=== PATIENT | female | born 1940 | race Caucasian/White ===

== ENCOUNTER 2021-02-02 07:33 | Emergency (ER) | payer MEDICARE, BC ==
[~2021-02-02] VITALS: Ht 165.1 cm; Wt 117.9 kg
[2021-02-02] MEDS ORDERED: DICLOFENAC SOD100 GM TP (08:06)
[2021-02-02] MEDS ORDERED: FUROSEMIDE20 MG PO (08:07)
[2021-02-02] MEDS ORDERED: POTASSIUM CHLORIDE E ×2 (08:07→08:08)
[2021-02-02] MEDS ORDERED: PANTOPRAZOLE SO40 M2 PO (08:07)
[2021-02-02] MEDS ORDERED: HYDROCO/APAP TAB 5-3 (08:08)
[2021-02-02] MEDS ORDERED: K-Dur10 MEQ (08:08)
[2021-02-02 08:44] LABS: BASOPHILS ABSOLUTE AUTO 0.05 K/mm3 (0.00-0.23); BASOPHILS PERCENT AUTO 1 % (0-2); EOSINOPHILS PERCENT AUTO 2 % (0-6); Hematocrit 45.3 % (33.0-51.0); Hemoglobin 14.6 g/dL (11.5-16.0); IMMATURE GRAN ABSOLUTE AUTO 0.01 K/mm3 (0.00-0.10); IMMATURE GRAN PERCENT AUTO 0 % (0-1); LYMPHOCYTES ABSOLUTE AUTO 2.43 K/mm3 (0.84-5.20); LYMPHOCYTES PERCENT AUTO 46 % (21-46); MONOCYTES ABSOLUTE AUTO 0.74 K/mm3 (0.16-1.47); MONOCYTES PERCENT AUTO 14 % (4-13); Mean Corpuscular HGB 34.2 pg (26.0-34.0); Mean Corpuscular HGB Conc 32.2 g/dL (31.5-36.5); Mean Corpuscular Volume 106 fL (80-100); Mean Platelet Volume 9.6 fL (9.1-12.4); NEUTROPHILS ABSOLUTE AUTO 1.93 K/mm3 (1.96-9.15); NEUTROPHILS PERCENT AUTO 37 % (41-73); Platelet Count 178 K/mm3 (150-400); RDW Coefficient Variation 13.1 % (11.7-14.2); RDW Standard Deviation 52.2 fL (35.1-46.3); Red Blood Cell Count 4.27 M/mm3 (3.80-5.20); White Blood Cell Count 5.26 K/mm3 (4.00-11.30)
[2021-02-02 08:57] LABS: Alanine Aminotransfer (ALT/SGP 15 U/L (12-78); Albumin/Globulin Ratio 0.7 (0.8-1.8); Alk Phos 76 U/L (50-136); Anion Gap 3 mmol/L (6-16); Aspartate Aminotrans (AST/SGOT 17 U/L (12-37); Blood Urea Nitrogen 23 mg/dL (8-24); Bun/Creatinine Ratio 38.8 (12.0-20.0); CO2, Blood 30 mmol/L (21-32); Calcium, Blood 8.9 mg/dL (8.5-10.1); Chloride, Blood 107 mmol/L (98-108); Creatinine, Blood 0.59 mg/dL (0.40-1.00); Globulin, Blood 4.1 g/dL (2.2-4.0); Glomerular Filtration Rate >60 (60-); Glucose, Blood 98 mg/dL (70-99); Potassium, Blood 4.2 mmol/L (3.5-5.5); Sodium, Blood 140 mmol/L (136-145); Total Protein, Blood 7.1 g/dL (6.4-8.2)
[2021-02-02 09:57] LABS: Source, Urine Clean Catch
[2021-02-02 10:03] LABS: Appearance, Urine Clear (Clear); Bilirubin, Urine Neg (Neg); Blood, Urine Neg (Neg); Glucose Qualitative, Urine Neg (Neg); Ketones, Urine 1+ (Neg); Leukocyte Esterase, Urine Neg (Neg); Nitrite, Urine Neg (Neg); Protein, Urine Neg (Neg); Urobilinogen, Urine NORM (Normal)
[2021-02-02 10:04] LABS: Color, Urine Pale Yellow (P-Yellow)
[2021-02-02] MEDS ORDERED: ELIQUIS5 M2 PO (12:59)
[2021-02-02] MEDS ORDERED: XARELTO20 MG PO (13:01)
== END 2021-02-02 15:08 | disposition home or self-care (01) ==
LOC: ER 07:33
PROVIDERS: Emergency Medicine
DX: I48.91 Unspecified atrial fibrillation (principal); M06.9 Rheumatoid arthritis, unspecified; Z88.0 Allergy status to penicillin; Z79.899 Other long term (current) drug therapy
CPT/HCPCS: 36415; 71046; 80053; 81003; 83880; 84439; 84443; 84484; 85025; 90686; 93005; 93010; 93306; 99284-25; A9270

== ENCOUNTER 2021-11-29 00:13 | Day surgery (SDC) | payer MEDICARE, BC ==
[~2021-11-29 00:13] MED LIST: DICLOFENAC SOD100 GM TP; ELIQUIS5 M2 PO; FUROSEMIDE20 MG PO; HYDROCO/APAP TAB 5-3; K-Dur10 MEQ; PANTOPRAZOLE SO40 M2 PO; POTASSIUM CHLORIDE E; XARELTO20 MG PO
== END 2021-11-29 15:31 | disposition home or self-care (01) ==
LOC: ATC 00:13
DX: E61.1 Iron deficiency (principal); G89.4 Chronic pain syndrome; G25.81 Restless legs syndrome; M77.42 Metatarsalgia, left foot; M77.41 Metatarsalgia, right foot; I50.9 Heart failure, unspecified; Z88.0 Allergy status to penicillin; Z79.899 Other long term (current) drug therapy
CPT/HCPCS: 96365; J2916

== ENCOUNTER 2021-12-02 00:05 | Day surgery (SDC) | payer MEDICARE, BC | END 2021-12-02 15:08 | disposition home or self-care (01) | LOC: ATC 00:05 | DX: E61.1 Iron deficiency (principal); G89.4 Chronic pain syndrome; G25.81 Restless legs syndrome; M77.42 Metatarsalgia, left foot; M77.41 Metatarsalgia, right foot; R73.03 Prediabetes; I50.9 Heart failure, unspecified; Z79.899 Other long term (current) drug therapy | CPT/HCPCS: 96365; J2916 ==

== ENCOUNTER 2022-01-08 01:47 | Day surgery (SDC) | payer MEDICARE, BC | END 2022-01-08 16:43 | disposition home or self-care (01) | LOC: ATC 01:47 | DX: E61.1 Iron deficiency (principal); Z88.0 Allergy status to penicillin; I50.9 Heart failure, unspecified; M19.90 Unspecified osteoarthritis, unspecified site; G89.4 Chronic pain syndrome; M54.9 Dorsalgia, unspecified; G25.81 Restless legs syndrome; M77.42 Metatarsalgia, left foot; M77.41 Metatarsalgia, right foot | CPT/HCPCS: 96365; 96366; J2916 ==

== ENCOUNTER 2022-01-14 14:24 | Day surgery (SDC) | payer MEDICARE, BC | END 2022-01-14 17:02 | disposition home or self-care (01) | LOC: ATC 14:24 | DX: E61.1 Iron deficiency (principal); G89.4 Chronic pain syndrome; I50.9 Heart failure, unspecified; R73.03 Prediabetes; Z88.0 Allergy status to penicillin; Z79.899 Other long term (current) drug therapy | CPT/HCPCS: J2916 ==